=== PATIENT | female | born 1950 | race Caucasian/White ===

== ENCOUNTER 2016-11-03 10:24 | Day surgery (SDC) | payer OTHER ==
[~2016-11-03 10:24] MED LIST: SILVER NITRATE APPLICATOR 1 APPL TP ONE
[2016-11-03 10:54] LABS: COLOR YELLOW; LEUKOCYTE ESTERASE,URINE 2+ (NEGATIVE); NITRITE,URINE NEGATIVE (NEGATIVE)
[2016-11-03 11:01] LABS: MUCUS TRACE /lpf (NONE-1+); RBC,URINE 15-25 /hpf (0-3); WBC,URINE 50-182 /hpf (0-3)
[2016-11-03] MEDS ORDERED: LIDOCAINE 1% 5 ML SDV ID PRN (11:12)
[2016-11-03] MEDS ORDERED: LR 1,000 ML IV ONE (11:12)
[2016-11-03] MEDS ORDERED: ceFAZolin 2 GM/DEXTROSE 100 ML IV ONE (12:00)
[2016-11-03] MEDS ORDERED: MIDAZOLAM 2 MG/2 ML VIAL ONE (12:24)
[2016-11-03] MEDS ORDERED: fentaNYL 100 MCG/2 ML INJ ONE ×2 (12:29→13:39)
[2016-11-03] MEDS ORDERED: PROPOFOL/EMULSION 500 MG/50 ML BOTTLE IV ONE (12:30)
[2016-11-03] MEDS ORDERED: KETOROLAC 30 MG/1 ML SDV ONE (13:27)
[2016-11-03] MEDS ORDERED: HYDROCODONE/APAP 5/325 TAB ONE (14:17)
--- NOTE | 2016-11-03 21:25 | GOP ---
DATE OF OPERATION: 11/03/2016 SURGEON: Saira Altamirano MD COTTON GROWER: None. ANESTHESIA: General. PREOPERATIVE DIAGNOSIS: Postmenopausal with endometrial thickening. POSTOPERATIVE DIAGNOSIS: Postmenopausal with endometrial thickening. PROCEDURE PERFORMED: 1. Dilation and curettage. 2. Hysteroscopy with morcellation of endometrial polyp. FINDINGS: 1. Exam under anesthesia revealed an anteverted uterus and no adnexal masses. 2. Intraoperative findings revealed a uterine cavity with a thickened appearing lining, bilateral os tia seen clearly, and a small polyp noted to be arising from the left side of the posterior uterine wall. SPECIMENS: Endometrial curettings. ESTIMATED BLOOD LOSS: Less than 5 cc. INDICATIONS: Patient is a menopausal female noted to have endometrial thickening on pelvic ultrasou nd after she was noted to have postmenopausal bleeding. DESCRIPTION OF PROCEDURE: The patient was taken to the operating room where general anesthesia was found be adequate. Patient was prepared and draped in the normal sterile fashion in the dorsal lith otomy position. A surgical time-out was performed. A weighted speculum was placed in the patient's vagina and a Rodriguez retractor used to visualize the cervix clearly. A single-toothed tenaculum was p laced on the anterior lip of the cervix and the cervix was then gently dilated up to 5 mm using Hega r dilators with no immediate complications. A 5 mm 0-degree Truclear hysteroscope was then placed i nto the cervix and advanced gently into the uterine cavity. The uterine cavity was visualized clear ly after increasing the intrauterine pressure to 90 to matched the patient's mean arterial pressure. The intrauterine cavity was visualized and noted to appear thickened and a small polyp was noted a long the left posterior uterine wall. The uterine cavity was then sampled circumferentially under d irect visualization with a 2.9 morcellator and the endometrial polyp was removed as well during this process. The uterine cavity was then visually cleared of all lesions. The hysteroscope was then r emoved. A sharp curettage was then performed with a gritty texture noted circumferentially and all of this tissue was sent to Pathology as well. The single-tooth tenaculum was removed from the cervi x and hemostasis was obtained with silver nitrate. All instruments were removed from the patient's vagina and she was awoken from anesthesia without complications. All sponge, lap, and needle counts were correct x2. The patient was transferred to the PACU in stab le and good condition. COMPLICATIONS: None. FLUIDS REPLACED: 700 cc. URINE OUTPUT: None. /[id number]/MODL
== END 2016-11-03 15:00 | disposition home or self-care (01) ==
LOC: FSGY 10:24
PROVIDERS: ATTEND Obstetrics & Gynecology
DX: N85.02 Endometrial intraepithelial neoplasia [EIN] (principal); N84.0 Polyp of corpus uteri; I10 Essential (primary) hypertension; N39.0 Urinary tract infection, site not specified
CPT/HCPCS: 58558; C1782; J0690; J1885; J2250; J2704; J3010

== ENCOUNTER → 2017-04-29 | Outpatient (CLI) | payer OTHER | LOC: FIMAGING 11:51 | PROVIDERS: ATTEND Obstetrics & Gynecology | DX: Z12.31 Encounter for screening mammogram for malignant neoplasm of breast (principal) | CPT/HCPCS: G0202 ==

== ENCOUNTER → 2018-05-17 | Outpatient (CLI) | payer OTHER | LOC: FIMAGING 10:47 | PROVIDERS: ATTEND Obstetrics & Gynecology | DX: Z12.31 Encounter for screening mammogram for malignant neoplasm of breast (principal) ==